=== PATIENT | male | born 1965 | race Caucasian/White ===

== ENCOUNTER → 2017-10-27 09:43 | Outpatient (CLI) | payer BC, SELFPAY ==
[2017-10-27 12:05] LABS: Cholesterol 179 mg/dL (200); High Density Lipoprotein 29 mg/dL; Triglycerides 116 mg/dL; Very Low Density Lipoprotein 23 mg/dL (5-40)
== END ==
PROVIDERS: Family Provider Family Medicine; PCP Family Medicine; Visit Provider Family Medicine
DX: E11.9 Type 2 diabetes mellitus without complications (principal)
CPT/HCPCS: 36415; 80061

== ENCOUNTER → 2018-01-19 10:17 | Outpatient (CLI) | payer BC, SELFPAY ==
--- NOTE | 2018-01-19 10:17 | DT_ITS ---
This patient was seen during an EMR downtime January 14, 2018 - January 21, 2018. This patient may have a combination of paper and electronic documentation or all paper documentation. All documentation is viewable within the e-chart portion of [facility] for each patient visit.
[2018-01-19 12:34] LABS: AST(SGOT) 39 U/L (15-37); Alanine Aminotransfer ALT/SGPT 66 U/L (16-61); Albumin, Serum 3.7 g/dL (3.2-5.0); Alkaline Phosphatase 49 U/L (45-117); Anion Gap 4 (5-15); BUN 13 mg/dL (7-18); BUN/Creat Ratio 15.3 RATIO (10-20); Bilirubin, Direct 0.06 mg/dL (0.00-0.30); Calcium,Total 8.7 mg/dL (8.5-10.1); Chloride 103 mmol/L (98-107); Cholesterol 146 mg/dL (200); Creatinine, Serum 0.85 mg/dL (0.70-1.30); EST Glomerular Filtration Rate 101 mL/min (>60); Est Glom Filt Rate - Afr Amer 122 mL/min (>60); Globulin 3.8 g/dL (2.2-4.2); Glucose 147 mg/dL (74-106); Potassium 4.8 mmol/L (3.5-5.1); Protein, Total 7.5 g/dL (6.4-8.2); Sodium Level 135 mmol/L (136-145); Triglycerides 135 mg/dL; Very Low Density Lipoprotein 27 mg/dL (5-40)
[2018-01-19 12:35] LABS: Hemoglobin A1c 7.2 % (4.2-6.3); High Density Lipoprotein 25 mg/dL; Microalbumin,Random Urine 12.7 mg/L (NO RANGE EST.)
== END ==
PROVIDERS: Family Provider Family Medicine; PCP Family Medicine; Visit Provider Family Medicine
DX: E11.9 Type 2 diabetes mellitus without complications (principal)
CPT/HCPCS: 36415; 80048; 80061; 80076; 82043; 82570; 83036

== ENCOUNTER → 2021-05-21 10:26 | Outpatient (CLI) | payer BC, SELFPAY ==
[2021-05-21 11:30] LABS: Hemoglobin A1c 7.1 % (3.8-5.6)
[2021-05-21 11:36] LABS: Anion Gap 5 (5-15); BUN 16 mg/dL (7-18); BUN/Creat Ratio 18.6 RATIO (10-20); Calcium,Total 8.8 mg/dL (8.5-10.1); Chloride 104 mmol/L (98-107); Cholesterol 169 mg/dL (200); Creatinine, Serum 0.86 mg/dL (0.70-1.30); EST Glomerular Filtration Rate 98 mL/min (>60); Est Glom Filt Rate - Afr Amer 119 mL/min (>60); Glucose 138 mg/dL (74-106); High Density Lipoprotein 31 mg/dL; Potassium 4.6 mmol/L (3.5-5.1); Sodium Level 138 mmol/L (136-145); Triglycerides 161 mg/dL; Very Low Density Lipoprotein 32 mg/dL (5-40)
[2021-05-21 11:55] LABS: Microalbumin,Random Urine < 5.0 mg/L (NO RANGE EST.)
== END ==
PROVIDERS: PCP Family Medicine; Referring Provider Family Medicine; Visit Provider Family Medicine
DX: E11.9 Type 2 diabetes mellitus without complications (principal)
CPT/HCPCS: 36415; 80048; 80061; 82043; 82570; 83036

== ENCOUNTER → 2021-12-03 | Outpatient (CLI) | payer BC, SELFPAY ==
[2021-12-03 10:46] LABS: Anion Gap 6 (5-15); BUN 18 mg/dL (7-18); BUN/Creat Ratio 20.6 RATIO (10-20); Chloride 103 mmol/L (98-107); Cholesterol 200 mg/dL (200); Creatinine, Serum 0.87 mg/dL (0.70-1.30); EST Glomerular Filtration Rate 96 mL/min (>60); Est Glom Filt Rate - Afr Amer 116 mL/min (>60); Glucose 152 mg/dL (74-106); High Density Lipoprotein 33 mg/dL; Potassium 4.7 mmol/L (3.5-5.1); Sodium Level 136 mmol/L (136-145); Triglycerides 133 mg/dL; Very Low Density Lipoprotein 27 mg/dL (5-40)
== END | disposition home or self-care (01) ==
LOC: LAB 09:36
PROVIDERS: PCP Family Medicine; Visit Provider Family Medicine
DX: E11.9 Type 2 diabetes mellitus without complications (principal)
CPT/HCPCS: 36415; 80048; 80061

== ENCOUNTER → 2022-08-26 | Outpatient (CLI) | payer BC, SELFPAY ==
[2022-08-26 09:12] LABS: Microalbumin,Random Urine 5.8 mg/L (NO RANGE EST.); Microalbumin:Creatinine Ratio 6.9 mg/g CRE (<30 mg/g CRE)
[2022-08-26 09:17] LABS: Anion Gap 5 (5-15); BUN 21 mg/dL (7-18); BUN/Creat Ratio 23.4 RATIO (10-20); Chloride 105 mmol/L (98-107); Cholesterol 155 mg/dL (200); EST Glomerular Filtration Rate 93 mL/min (>60); Est Glom Filt Rate - Afr Amer 112 mL/min (>60); Glucose 169 mg/dL (74-106); High Density Lipoprotein 30 mg/dL; Potassium 4.6 mmol/L (3.5-5.1); Sodium Level 137 mmol/L (136-145); Triglycerides 172 mg/dL; Very Low Density Lipoprotein 34 mg/dL (5-40)
== END | disposition home or self-care (01) ==
PROVIDERS: PCP Family Medicine; Visit Provider Family Medicine
DX: E11.9 Type 2 diabetes mellitus without complications (principal)
CPT/HCPCS: 36415; 80048; 80061; 82043; 82570

== ENCOUNTER 2022-12-09 19:41 | Emergency (ER) | payer BC, SELFPAY ==
[2022-12-09 19:42] VITALS: BP 126/87; PULSE 70; RESP 16; TEMP 36.7; O2SAT 96; BMI 32.0
--- NOTE | 2022-12-09 19:59 | EX.ED.DYSGE1 ---
HPI <DIEGO Cross - Last Filed: 12/09/22 21:15> History of Present Illness Chief Complaint: Lower Extremity Injury Narrative Narrative: Patient is a 57-year-old male with history of hypertension, hyperlipidemia, diabetes who presents to the emergency department after sustaining a left knee injury. Patient states that he tripped over a trailer, striking his left knee. That was at roughly 11 AM. Patient continued to work until 5 PM when the pain got much worse, his knee got more swollen. Patient states he was constantly standing up and squatting down trying level trailer. He states the pain is to the upper part of the knee as well as the lower part of the knee and worsening pain with any ambulation. He denies any previous injury to that knee PFSH <DIEGO Cross - Last Filed: 12/09/22 21:15> PFSH Home Medications ibuprofen 600 mg tablet 600 mg PO Q6H PRN PRN pain #20 TABLETS 12/09/22 [Rx Last Taken Unknown] oxycodone-acetaminophen 5 mg-325 mg tablet (Endocet) 1 tab PO Q8H PRN pain 3 days #12 tabs 12/09/22 [Rx Last Taken Unknown] Allergy/AdvReac Type Severity Reaction Status Date / Time No Known Allergies Allergy Verified 12/09/22 19:44 Social History Smoking Status: Never smoker ROS <DIEGO Cross - Last Filed: 12/09/22 21:15> ROS ED ROS Narrative Constitutional: Negative for fever, chills, weight loss, weakness Eyes: Negative for vision loss, vision change, double vision ENT: Negative for any sore throat, ear pain, congestion Cardiovascular: Negative for any chest pain, tightness, palpitations Respiratory: Negative for any cough, sputum production, hemoptysis, dyspnea, dyspnea on exertion, orthopnea Gastrointestinal: Negative for any abdominal pain, nausea, vomiting, diarrhea, constipation, blood in stool, blood in vomit : Negative for any urinary frequency, dysuria, retention, blood in urine Muscle skeletal: Negative for any muscle joint pain, stiffness, myalgias, arthralgias, neck pain, back pain. Positive for left knee pain Neurological: Negative for any headache, syncope, numbness or tingling, dizziness Skin: Negative for any rashes, lumps, itching, abrasions, lacerations Psychiatric: Negative for any depression, anxiety, stress, suicidal ideation, homicidal ideation Hematologic: Negative for any easy bruising, excessive bruising, easy bleeding Allergies: Negative for any eczema, hives, rash EXAM <DIEGO Cross - Last Filed: 12/09/22 21:15> Physical Exam Narrative Exam Narrative: Vital signs reviewed. Extremities: Patient's left knee does appear slightly swollen, there is no ecchymosis or laceration. Examination is consistent with a joint effusion. Patient does have pain both to the superior and inferior patella. Patient also has pain to the distal quadricep. Patient does have an intact extensor magnesium however this is very painful. He is able lift the left leg off of the bed and straighten however this does cause significant pain. No neurological focal deficit. Neuro: Cranial nerves II through XII intact, no focal neurological deficits. Skin: Clean dry and intact with no rash, purpura, petechiae, vesicles or pustules. Backs/flank: No CVA tenderness, no midline spinal tenderness, no deformity. Psych: Normal mood and affect. No SI, HI or acute psychosis. Const Vital Signs: 12/09/22 19:42 Temperature 98.1 F Temperature Source Temporal Pulse Rate 70 Respiratory Rate 16 Blood Pressure 126/87 H Blood Pressure Mean 100 Pulse Ox 96 Oxygen Delivery Method Room Air <Dr. John Paul Young DO - Last Filed: 12/09/22 21:02> Physical Exam Const Vital Signs: 12/09/22 19:42 Temperature 98.1 F Temperature Source Temporal Pulse Rate 70 Respiratory Rate 16 Blood Pressure 126/87 H Blood Pressure Mean 100 Pulse Ox 96 Oxygen Delivery Method Room Air MDM <DIEGO Cross - Last Filed: 12/09/22 21:15> MDM Radiography Diagnostic Testing: Clinical Impression(s) from Imaging Studies Knee X-Ray 12/09/22 20:10 IMPRESSION: Normal x-ray examination of the knee. Electronically Signed: Martínez Woods MD at 20:34 EDT , Treatment and Re-Evaluation :: All radiologic examinations were read, reviewed by the emergency department attending. From these reads, a plan of care will be put in place. Patient arrives in mild distress secondary to left-sided knee pain. Patient's knee exam does show an intact extensor magnesium however it does cause significant mount of pain. He has pain throughout the superior and inferior patella. Patient did receive x-rays of the knee which showed a normal examination the knee no bony abnormality. However secondary to the patient's presentation, concern for some ligamentous injury. There is no injury of full quadricep tear. Patient was given Percocet here. At this time, I do believe the patient needs to follow-up with orthopedics. He be placed in a knee immobilizer, crutches with instruction. He will be given Percocet, ibuprofen for home. He will follow-up with orthopedics, his family also is established with [facility] he may also up to [facility]. I gave him return precautions. I spoke with him and his at length, they had all questions answered and given return precautions <Dr. John Paul Young, DO - Last Filed: 12/09/22 21:02> [facility] Narrative Medical decision making narrative: I have personally performed a face to face assessment of the patient and have reviewed the CEASAR Note. I performed a substantive portion of the visit including all aspects of the following. My albert findings include: History: Patient presents with left knee pain that began today. Patient states she jumped onto a trailer this morning and there was some water on it. Patient states he slipped and twisted his left knee. Patient states the pain is mainly superior to the patella. Patient states the pain is worse with certain movements. Patient states he was able to continue working on this throughout the day today. Patient states the pain became worse tonight. Patient denies feeling any popping sensation. Patient denies any paresthesias or weakness. Patient denies any other injuries. Exam: Vital signs are stable. Patient is afebrile. Patient is in no acute distress. Musculoskeletal exam reveals tenderness over the anterior aspect of the left knee just superior to the patella. There is no step-off or deformity noted. Extensor mechanism is intact. There is a mild effusion noted. Range of motion was limited in all motions of the left knee secondary to pain. There is no laxity appreciated however, the patient is guarding on examination. There is a strong pedal pulse noted. There are no sensory deficits noted. Medical Decision Making: Differential diagnosis includes occult fracture, ligamentous injury, tendon injury, strain, sprain, and contusion. X-rays of the left knee will be obtained to assess for fracture. X-rays of the left knee were obtained. There are 4 views. On my independent interpretation, there is no acute fracture or dislocation. There is a mild effusion noted. Radiologist also interpreted the x-rays and agrees. Patient was advised of his findings. Patient was given a knee immobilizer and crutches. Patient was given a prescription for Percocet. Patient was instructed to ice and elevate the left knee. Patient was instructed to follow-up with his primary care physician in 5 to 7 days. Patient was also given referral for orthopedics. Patient understands and is agreeable with the plan. All questions were answered. Radiography Diagnostic Testing: Clinical Impression(s) from Imaging Studies Knee X-Ray 12/09/22 20:10 IMPRESSION: Normal x-ray examination of the knee. Electronically Signed: Martínez Woods MD at 20:34 EDT , X-rays of the left knee were obtained. There are 4 views. On my independent interpretation, there is no acute fracture. There is no dislocation. There is some mild soft tissue swelling. Radiologist also interpreted the x-rays and agrees. Discharge Plan Triage Chief Complaint: Lower Extremity Injury ED Midlevel Provider: Celestino Rodriguez ED Provider: John Paul Young Dx/Rx/DC Orders Clinical Impression: Fall, Knee contusion, Knee injury Instructions: ED Knee Effusion, ED Knee Sprain, ED ACL PCL Prescriptions: New oxycodone-acetaminophen [Endocet] 5-325 mg tablet 1 tab PO Q8H PRN (Reason: pain) 3 Days Qty: 12 0RF ibuprofen 600 mg tablet 600 mg PO Q6H PRN PRN (Reason: pain) Qty: 20 0RF Primary Care Provider: Celestino Manrique Referrals: Lance Pozo DO [Med Staff - Active Staff] - 3-5 Days Celestino Manrique MD [Primary Care Provider] - Activity Restrictions/Additional Instructions: Please continue to ice, elevate. Use both pain medicines. Follow-up with either [facility], or who I referred you to Disposition Disposition: Home, Self Care
[2022-12-09] MEDS: Ibuprofen 400 MG Tablet 800 MG PO (20:03)
[2022-12-09] MEDS: oxyCODONE 5 MG Tablet PO (20:04)
--- NOTE | 2022-12-09 20:10 | RAD_ITS ---
STUDY: X-RAY - LEFT KNEE REASON FOR EXAM: Male, 57 years old. fall TECHNIQUE: 4 view(s) of the knee. COMPARISON: None. FINDINGS: Normal visualized distal femur. Normal visualized proximal tibia and fibula. Normal proximal tibiofibular articulation. Enthesophyte of the superior pole of the patella at the quadriceps tendon insertion. Normal medial femorotibial compartment. Normal lateral femorotibial compartment. Normal patellofemoral articulation. The soft tissue structures are unremarkable. RAD/Knee 4 or More Views IMPRESSION: Normal x-ray examination of the knee. Electronically Signed: Martínez Woods MD at 20:34 EDT ,
== END 2022-12-09 21:57 | disposition home or self-care (01) ==
PROVIDERS: Emergency Provider Emergency Medicine; PCP Family Medicine; Visit Provider Emergency Medicine
DX: S80.02XA Contusion of left knee, initial encounter (principal); X58.XXXA Exposure to other specified factors, initial encounter
CPT/HCPCS: 73564; 99284

== ENCOUNTER → 2023-06-09 | Outpatient (CLI) | payer BC, SELFPAY ==
[2023-06-09 08:37] LABS: Anion Gap 3 (5-15); BUN 22 mg/dL (7-18); BUN/Creat Ratio 23.5 RATIO (10-20); Calcium,Total 8.9 mg/dL (8.5-10.1); Chloride 104 mmol/L (98-107); Cholesterol 130 mg/dL (200); Creatinine, Serum 0.94 mg/dL (0.70-1.30); EST Glomerular Filtration Rate 88 mL/min (>60); Est Glom Filt Rate - Afr Amer 107 mL/min (>60); Glucose 150 mg/dL (74-106); High Density Lipoprotein 32 mg/dL; Potassium 4.2 mmol/L (3.5-5.1); Sodium Level 135 mmol/L (136-145); Triglycerides 160 mg/dL; Very Low Density Lipoprotein 32 mg/dL (5-40)
[2023-06-09 08:46] LABS: Microalbumin,Random Urine < 5.0 mg/L (NO RANGE EST.)
== END | disposition home or self-care (01) ==
LOC: LAB 07:39
PROVIDERS: PCP Family Medicine; Referring Provider Family Medicine; Visit Provider Family Medicine
DX: E11.9 Type 2 diabetes mellitus without complications (principal)
CPT/HCPCS: 36415; 80048; 80061; 82043; 82570

== ENCOUNTER → 2023-11-10 | Outpatient (CLI) | payer BC, SELFPAY ==
[2023-11-10 11:20] LABS: ALB/GLOB Ratio 0.9 RATIO (0.9-2.4); AST(SGOT) 43 U/L (15-37); Alanine Aminotransfer ALT/SGPT 67 U/L (16-61); Albumin, Serum 3.8 g/dL (3.2-5.0); Alkaline Phosphatase 59 U/L (45-117); Anion Gap 3 (5-15); BUN 20 mg/dL (7-18); BUN/Creat Ratio 23.9 RATIO (10-20); Calcium,Total 9.6 mg/dL (8.5-10.1); Chloride 107 mmol/L (98-107); Cholesterol 145 mg/dL (200); Creatinine, Serum 0.84 mg/dL (0.70-1.30); EST Glomerular Filtration Rate 101 mL/min (>60); Est Glom Filt Rate - Afr Amer 122 mL/min (>60); Globulin 4.2 g/dL (2.2-4.2); Glucose 113 mg/dL (74-106); High Density Lipoprotein 38 mg/dL; Potassium 4.6 mmol/L (3.5-5.1); Sodium Level 138 mmol/L (136-145); Triglycerides 90 mg/dL; Very Low Density Lipoprotein 18 mg/dL (5-40)
== END | disposition home or self-care (01) ==
LOC: LAB 10:06
PROVIDERS: PCP Family Medicine; Referring Provider Family Medicine; Visit Provider Family Medicine
DX: E11.9 Type 2 diabetes mellitus without complications (principal)
CPT/HCPCS: 36415; 80053; 80061

== ENCOUNTER → 2023-12-12 | Outpatient (CLI) | payer BC, SELFPAY ==
--- NOTE | 2023-12-12 12:46 | ECHOD_ITS ---
Reason For Study: MURMUR Procedure This was a 2D Doppler, Color Flow transthoracic echocardiogram. Exam performed in department. Left Ventricle Normal LV size. Left ventricular systolic function is normal. The left ventricular ejection fraction is 65 %. Stage 1 diastolic dysfunction. No regional wall motion abnormalities noted. Right Ventricle Normal RV size. Normal systolic function. Atria Normal left atrium. Normal right atrium. Mitral Valve Bileaflet diffuse mitral valve thickening. 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 Tricuspid Valve Normal tricuspid valve. Aortic Valve Trisinus/trileaflet aortic valve. Pulmonic Valve Normal pulmonic valve. Great Vessels Normal aortic root. The pulmonary artery is normal size. Normal inferior vena cava. Pericardium/Pleural No pericardial effusion. MMode/2D Measurements & Calculations LVIDd: 4.1 cm IVSd: 1.1 cm LVOT diam: 2.1 cm LVIDs: 1.9 cm LVPWd: 1.1 cm LVOT area: 3.4 cm2 RVDd: 3.7 cm FS: 54.4 % Ao root diam: 3.7 cm LAV(MOD-bp): 50.6 ml LVAd ap4: 24.3 cm2 LAV(MOD-bp) Indexed: 22.6 ml/m2 LVLd ap4: 8.0 cm LAV(MOD-sp2): 36.4 ml EDV(MOD-sp4): 61.6 ml LAV(MOD-sp4): 64.9 ml EDV(sp4-el): 62.5 ml LVAs ap4: 13.1 cm2 LVLs ap4: 6.8 cm ESV(MOD-sp4): 21.6 ml ESV(sp4-el): 21.4 ml EF(MOD-sp4): 64.9 % EF(sp4-el): 65.8 % LVAd ap2: 25.6 cm2 SV(MOD-sp4): 40.0 ml SV(MOD-sp2): 45.4 ml LVLd ap2: 8.0 cm EDV(MOD-sp2): 65.6 ml EDV(sp2-el): 70.1 ml LVAs ap2: 12.3 cm2 LVLs ap2: 6.3 cm ESV(MOD-sp2): 20.2 ml ESV(sp2-el): 20.4 ml EF(MOD-sp2): 69.1 % SV(sp4-el): 41.1 ml LA dimension(2D): 4.6 cm LA A4 area: 22.3 cm2 RA A4 area: 12.0 cm2 TAPSE: 2.0 cm Time Measurements MV dec time: 0.24 sec Doppler Measurements & Calculations MV E max heron: 64.5 cm/sec Lat Peak E' Heron: 11.9 cm/sec Med Peak E' Heron: 7.4 cm/sec MV A max heron: 73.7 cm/sec E/E' lat: 5.4 E/E' med: 8.7 MV E/A: 0.87 Ao V2 max: 117.1 cm/sec LV V1 max: 116.9 cm/sec MV dec slope: 269.7 cm/sec2 Ao max P.5 mmHg LV V1 max P.5 mmHg Ao V2 mean: 84.4 cm/sec LV V1 mean P.9 mmHg Ao mean P.3 mmHg LV V1 mean: 96.9 cm/sec Ao V2 VTI: 25.3 cm LV V1 VTI: 24.6 cm AV (velocity ratio): 0.97 BEN(I,D): 3.3 cm2 BEN(V,D): 3.4 cm2 SV(LVOT): 84.0 ml PA V2 max: 78.7 cm/sec PA max PG (full): 1.5 mmHg ECHO/Echo Complete Interpretation Summary Normal LV size. Left ventricular systolic function is normal. The left ventricular ejection fraction is 65 %. Stage 1 diastolic dysfunction. Bileaflet diffuse mitral valve thickening. 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 Ordering Physician: Celestino Manrique Referring Physician: Celestino Manrique Performed By: Nereida Jay RDCS
== END | disposition home or self-care (01) ==
PROVIDERS: PCP Family Medicine; Referring Provider Family Medicine; Visit Provider Family Medicine
DX: R01.1 Cardiac murmur, unspecified (principal)
CPT/HCPCS: 93306

== ENCOUNTER → 2024-05-10 | Outpatient (CLI) | payer BC, SELFPAY ==
[2024-05-10 09:18] LABS: ALB/GLOB Ratio 0.9 RATIO (0.9-2.4); AST(SGOT) 38 U/L (15-37); Alanine Aminotransfer ALT/SGPT 62 U/L (16-61); Albumin, Serum 3.7 g/dL (3.2-5.0); Alkaline Phosphatase 52 U/L (45-117); Anion Gap 5 (5-15); BUN 18 mg/dL (7-18); BUN/Creat Ratio 19.9 RATIO (10-20); Calcium,Total 9.2 mg/dL (8.5-10.1); Chloride 102 mmol/L (98-107); Cholesterol 145 mg/dL (200); EST Glomerular Filtration Rate 92 mL/min (>60); Est Glom Filt Rate - Afr Amer 111 mL/min (>60); Glucose 145 mg/dL (74-106); High Density Lipoprotein 36 mg/dL; Potassium 4.7 mmol/L (3.5-5.1); Protein, Total 7.7 g/dL (6.4-8.2); Sodium Level 134 mmol/L (136-145); Triglycerides 127 mg/dL; Very Low Density Lipoprotein 25 mg/dL (5-40)
[2024-05-10 10:01] LABS: Microalbumin,Random Urine 5.9 mg/L (NO RANGE EST.)
== END | disposition home or self-care (01) ==
LOC: LAB 08:11
PROVIDERS: PCP Family Medicine; Referring Provider Family Medicine; Visit Provider Family Medicine
DX: E11.9 Type 2 diabetes mellitus without complications (principal)
CPT/HCPCS: 36415; 80053; 80061; 82043

== ENCOUNTER → 2024-09-04 | Outpatient (CLI) | payer BC, SELFPAY ==
[2024-09-04 10:33] LABS: Absolute Lymphocyte Count 1.21 X10^3/uL (0.83-4.51); Absolute Neutrophil Count 3.1 X10^3/uL (2.0-7.7); Basophil# 0.04 X10^3/uL; Basophil% 0.8 % (0-1); Eosinophil# 0.14 X10^3/uL; Eosinophils% 2.8 % (0-5); Hematocrit 44.5 % (40-54); Hemoglobin 14.9 g/dL (13.0-16.5); Lymphocyte # 1.21 X10^3/ul (0.83-4.51); Mean Corp Hgb Conc 33.5 g/dL (32-36); Mean Corpuscular Hgb 29.9 pg (27.0-32.0); Mean Corpuscular Volume 89.2 fL (80-94); Mean Platelet Vol. 9.8 fl (6.2-12.0); Monocyte# 0.55 X10^3/uL; Monocyte% 10.9 % (0-10); NRBC Flagged by Analyzer 0 % (0-5); Neutrophil % 61.3 % (47-70); Platelet Count 144 K/mm3 (150-450); RBC Distribution Width CV 11.9 % (11.6-14.6); RBC Distribution Width SD 38.6 fl (35.1-43.9); Red Blood Count 4.99 M/mm3 (4.6-6.2); White Blood Count 5.1 K/mm3 (4.4-11.0)
[2024-09-04 11:07] LABS: AST(SGOT) 37 U/L (15-37); Alanine Aminotransfer ALT/SGPT 66 U/L (16-61); Albumin, Serum 3.9 g/dL (3.2-5.0); Alkaline Phosphatase 57 U/L (45-117); Anion Gap 4 (5-15); BUN 18 mg/dL (7-18); BUN/Creat Ratio 18.4 RATIO (10-20); Calcium,Total 9.4 mg/dL (8.5-10.1); Chloride 104 mmol/L (98-107); Cholesterol 99 mg/dL (200); Creatinine, Serum 0.98 mg/dL (0.70-1.30); EST Glomerular Filtration Rate 84 mL/min (>60); Est Glom Filt Rate - Afr Amer 101 mL/min (>60); Glucose 84 mg/dL (74-106); High Density Lipoprotein 35 mg/dL; Potassium 4.7 mmol/L (3.5-5.1); Protein, Total 7.9 g/dL (6.4-8.2); Sodium Level 136 mmol/L (136-145); Triglycerides 83 mg/dL; Very Low Density Lipoprotein 17 mg/dL (5-40)
[2024-09-04 11:13] LABS: Hemoglobin A1c 6.4 % (3.8-5.6)
== END | disposition home or self-care (01) ==
LOC: LAB 10:12
PROVIDERS: PCP Family Medicine
DX: Z01.818 Encounter for other preprocedural examination (principal); E11.9 Type 2 diabetes mellitus without complications; M25.561 Pain in right knee; M23.8X1 Other internal derangements of right knee; Z51.81 Encounter for therapeutic drug level monitoring; S83.241A Other tear of medial meniscus, current injury, right knee, initial encounter
CPT/HCPCS: 80053; 80061; 83036; 85025

== ENCOUNTER → 2024-12-27 | Outpatient (CLI) | payer BC, SELFPAY ==
[2024-12-27 11:29] LABS: ALB/GLOB Ratio 1.4 RATIO (0.9-2.4); AST(SGOT) 40 U/L (<=37); Alanine Aminotransfer ALT/SGPT 41 U/L (<=46); Albumin, Serum 4.4 g/dL (3.5-5.0); Alkaline Phosphatase 73 U/L (40-129); Anion Gap 11 (5-15); BUN 24 mg/dL (4-19); BUN/Creat Ratio 27.4 RATIO (10-20); Calcium,Total 9.3 mg/dL (7.6-11.0); Carbon Dioxide 21.8 mmol/L (21.0-32.0); Chloride 103 mmol/L (98-108); Creatinine, Serum 0.87 mg/dL (0.70-1.20); EST Glomerular Filtration Rate 100 (>60); Globulin 3.2 g/dL (2.2-4.2); Glucose 217 mg/dL (70-99); Protein, Total 7.6 g/dL (5.9-8.4); Sodium Level 136 mmol/L (133-145); Total Bilirubin 0.37 mg/dL (0.00-1.30)
== END | disposition home or self-care (01) ==
LOC: LAB 07:07
PROVIDERS: PCP Family Medicine; Referring Provider Family Medicine; Visit Provider Family Medicine
DX: E11.9 Type 2 diabetes mellitus without complications (principal)
CPT/HCPCS: 36415; 80053